=== PATIENT | female | born 1995 | race Caucasian/White ===

== ENCOUNTER 2017-03-29 19:41 | Emergency (ER) | payer BC ==
[2017-03-29] MEDS: ACETAMINOPHEN 500 MG TAB PO (21:48)
[2017-03-29] MEDS: PROMETHAZINE/CODEINE 5ML CUP PO (22:12)
== END 2017-03-29 22:23 | disposition home or self-care (01) ==
LOC: FTE 19:41
DX: J06.9 Acute upper respiratory infection, unspecified (principal); J45.909 Unspecified asthma, uncomplicated
CPT/HCPCS: 71010; 99283-25